=== PATIENT | female | born 2000 | race Caucasian/White ===

== ENCOUNTER 2023-01-07 17:17 | Emergency (ER) | payer OTHER, SELFPAY ==
[2023-01-07 17:22] VITALS: BP 108/68; PULSE 102; RESP 20; TEMP 37.1; O2SAT 98
--- NOTE | 2023-01-07 17:28 | ED.NAVMDI ---
HPI - Nausea/Vomiting/Diarrhea General Chief complaint: Nausea/Vomiting/Diarrhea Stated complaint: Congestion/Vomiting Source: patient and RN notes reviewed History of Present Illness HPI Narrative: 22-year-old female presents urgent care with complaints of sinus congestion, sinus pressure, headache, excessive mucus that she continues to choke on and causes her to vomit. Patient states she has been having these symptoms for last 8 days and is getting worse. Patient states today she had an episode of watery diarrhea. Denies any chest pain, shortness of breath, ear pain, or dysuria. Patient to be DayQuil last week whih resolved the sore throat. Some parts of this dictation were generated by voice recognition software and may contain typographical and/or grammatical inaccuracies. Related Data Home Medications Medication Instructions Recorded Confirmed omeprazole 40 mg capsule,delayed 40 mg PO DIRECTED 01/07/23 01/07/23 release ondansetron HCl 8 mg tablet 8 mg PO DIRECTED 01/07/23 01/07/23 Allergies Allergy/AdvReac Type Severity Reaction Status Date / Time No Known Allergies Allergy Verified 01/07/23 17:34 Review of Systems Review of Systems: CONSTITUTIONAL: Denies fever, chills, or sweats. EYES: Denies visual changes, redness, or discharge. ENT: Congestion CARDIOVASCULAR: Denies chest pain, palpitations, or edema. RESPIRATORY: Denies cough or dyspnea. GASTROINTESTINAL: Vomiting and diarrhea GENITOURINARY: Denies dysuria or hematuria. SKIN: Denies rash or itching. MUSCULOSKELETAL: Denies back pain, joint pain, or myalgia. NEUROLOGIC: Headache PMFSH Comments At the time of my signature, I reviewed and agree with the nursing past medical, surgical, social, and family history. There is no relevant family history pertinent to the patient complaint. Exam Narrative: GENERAL: This is a well-nourished, well-developed patient, in no apparent distress. HEAD: normocephalic, atraumatic. EYES: Sclera clear/white. Vision is grossly intact. EARS: External ears normal, auditory canals clear and without drainage, TMs normal without perforation. Hearing grossly intact. NOSE: Congestion THROAT: Mucous membranes moist, posterior pharynx clear. NECK: Neck supple, non-tender without lymphadenopathy, masses or thyromegaly. CARDIOVASCULAR: Regular rate and rhythm without murmurs, gallops, or rubs. RESPIRATORY: Clear to auscultation. Breath sounds equal bilaterally. No wheezes, rales, or rhonchi. GASTROINTESTINAL: Abdomen soft, non-tender, nondistended. Bowel sounds are active. No hepato-splenomegaly, or palpable masses. No guarding. SKIN: warm, intact with no suspicious lesions or rash, good texture and turgor. NEURO: awake, alert, and oriented to person, place and time. There were no obvious focal neurologic abnormalities. EXTREMITIES: No clubbing, cyanosis, or edema. No joint tenderness, effusion, or edema noted. BACK: Nontender without deformity or crepitance. No flank tenderness. Course Course Level of Care: Express Care Visit Vital Signs Vital signs: Vital Signs Temperature 98.7 F 01/07/23 17:22 Pulse Rate 102 H 01/07/23 17:22 Respiratory Rate 20 01/07/23 17:22 Blood Pressure 108/68 01/07/23 17:22 Pulse Oximetry 98 01/07/23 17:22 Oxygen Delivery Room Air 01/07/23 17:22 Temperature 98.7 F 01/07/23 17:22 Pulse Rate 102 H 01/07/23 17:22 Respiratory Rate 20 01/07/23 17:22 Blood Pressure 108/68 01/07/23 17:22 Pulse Oximetry 98 01/07/23 17:22 Oxygen Delivery Room Air 01/07/23 17:22 Reviewed MDM - Nausea/Vomiting/Diarrhea MDM Narrative Medical decision making narrative: Take the Zofran ODT at home as directed for nausea and get plenty of fluids. You may take Imodium for diarrhea. If you would like to eat food, you should follow the BRAT diet (bananas, rice, applesauce, and toast, or things of the like). If you develop any new or worsening symptoms, you should go to the em
== END 2023-01-07 18:08 | disposition home or self-care (01) ==
PROVIDERS: Emergency Provider Nurse Practitioner Family; PCP Nurse Practitioner Family
DX: J32.9 Chronic sinusitis, unspecified (principal)
CPT/HCPCS: 99213; G0463

== ENCOUNTER 2023-03-08 17:48 | Emergency (ER) | payer OTHER, SELFPAY ==
[2023-03-08 17:57] VITALS: BP 114/76; PULSE 85; RESP 14; TEMP 36.7; O2SAT 96
--- NOTE | 2023-03-08 18:00 | ECG_ITS ---
Measurements Intervals [place] Rate: 80 P: 58 NM: 175 QRS: 66 QRSD: 83 T: -47 QT: 344 QTc: 398 Interpretive Statements SINUS RHYTHM POSSIBLE LEFT ATRIAL ENLARGEMENT NONSPECIFIC T-WAVE ABNORMALITY- ANTEROLAT/INF LEADS BORDERLINE ECG NO PREVIOUS ECG AVAILABLE FOR COMPARISON Electronically Signed On 03-10-2023 15:02:31 CDT by Triston Richards D.O.
[2023-03-08 18:25] LABS: Basophils Absolute Auto 0.1 K/mm3 (0.0-0.1); Basophils Percent Auto 0.5 % (0.2-1.2); Eosinophils Absolute Auto 0.2 K/mm3 (0-0.3); Eosinophils Percent Auto 1.8 % (0-4.4); Hematocrit 44.2 % (37.0-47.0); Hemoglobin 14.9 g/dL (12.0-15.0); Immature Granulocyte Absolute 0.03 K/mm3 (0.00-0.031); Immature Granulocyte Percent A 0.3 % (0-0.5); Lymphocytes Percent Auto 41.5 % (18.3-44.2); Mean Corpuscular HGB Conc 33.7 g/dl (32-36); Mean Corpuscular Hemoglobin 30.3 pg (26-34); Mean Corpuscular Volume 89.8 fl (80-100); Mean Platelet Volume 11.2 fl (7.4-10.4); Monocytes Absolute Auto 0.7 K/mm3 (0.1-0.6); Monocytes Percent Auto 6.3 % (2.6-8.5); Neutrophils Absolute Auto 5.6 K/mm3 (1.3-6.7); Neutrophils Percent Auto 49.6 % (45.5-73.1); Platelet Count Result 226 k/mm3 (150-375); Red Blood Count 4.92 M/mm3 (4.2-5.4); Red Cell Distribution Width 13.5 % (11.5-14.5); White Blood Count 11.3 K/mm3 (4.5-10.0)
[2023-03-08 18:35] LABS: Alanine Aminotransferase 13 U/L (6-35); Albumin Level 4.5 g/dL (3.5-5.1); Alkaline Phosphatase 68 U/L (38-126); Anion Gap 6 mmol/L (8-16); Aspartate Amino Transferase 21 U/L (14-36); Bilirubin,Total 0.4 mg/dL (0.2-1.3); Blood Urea Nitrogen 7 mg/dL (7-17); Calcium 9.2 mg/dL (8.4-10.2); Carbon Dioxide 29 mmol/L (22-30); Chloride 104 mmol/L (98-107); Estimated CRCL calculation 96 ml/min; Estimated Glomerular Filt Rate > 60; Glucose 86 mg/dL (65-110); Potassium 3.7 mmol/L (3.4-5.0); Sodium 139 mmol/L (137-145)
[2023-03-08 21:21] VITALS: BP 118/78; PULSE 75; RESP 25; O2SAT 98
--- NOTE | 2023-03-08 21:34 | ED.SYNCOPE ---
HPI - Syncope General Chief Complaint: Syncope Stated Complaint: multiple syncopal episodes since wednesday Time Seen by Provider: 03/08/23 21:17 Source: patient and RN notes reviewed Mode of arrival: ambulatory Limitations: no limitations History of Present Illness HPI narrative: This is a 22 year old female who presents for evaluation of syncope episode. [place] had fainting episode. She reports she felt nausea and lightheaded when she was walking. She states at that she fell to the ground and she hit her head. She was sent to [facility], operated by [facility] that day for evaluation. She reports having labs and CT brain ordered. She was discharged after she was able to ambulate around the ER. She states today she developed nausea, warm and flushed and lightheaded. She reports she does not think she completely passed out. She denies having palpitations, chest pain or shortness of breath at that time. Her mother states patient does not eat much over the past several months. She has been dealing with GI issues in which she has nausea and decreased appetite. Patient states she only had 1 thing to eat today. She states she had upper endoscopy in November for her symptoms, and she has been prescribed omeprazole. Related Data Home Medications Medication Instructions Recorded Confirmed omeprazole 40 mg capsule,delayed 40 mg PO DIRECTED 01/07/23 01/07/23 release ondansetron HCl 8 mg tablet 8 mg PO DIRECTED 01/07/23 01/07/23 Allergies Allergy/AdvReac Type Severity Reaction Status Date / Time No Known Allergies Allergy Verified 03/08/23 21:15 Review of Systems Constitutional: Constitutional: Denies weakness Cardiovascular: Cardiovascular: Reports syncope, Denies rapid heart rate, Denies irregular heart rhythm, Denies leg edema and Denies dyspnea Respiratory: Respiratory: Denies chest congestion, Denies hemoptysis, Denies excessive phlegm production and Denies dyspnea Gastrointestinal: Gastrointestinal: Denies abdominal pain, Denies hematochezia, Denies diarrhea, Reports nausea and Denies vomiting Genitourinary: Genitourinary: Denies hematuria and Denies dysuria Musculoskeletal: Musculoskeletal: Denies joint swelling, Denies loss of height and Denies muscle weakness Neurologic: Denies syncope, Denies focal weakness and Denies weakness PMFSH Past Medical History Medical History (Updated 03/08/23 @ 22:39 by Jazmyn Garcia MD) GERD (gastroesophageal reflux disease) Surgical History Surgical History (Updated 03/08/23 @ 21:39 by Jazmyn Garcia MD) No pertinent past surgical history Social History Social History (Updated 03/08/23 @ 21:40 by Jazmyn Garcia MD) Smoking status: Never smoker Exam Narrative: GENERAL: Well-appearing, well-nourished, and in no acute distress. HEAD: Normocephalic, atraumatic EYES: PERRLA and EOMI, conjunctiva clear without discharge THROAT:Mucous membranes moist, Oropharynx normal without erythema, exudate, peritonsillar swelling or fluctuance NECK: Supple, without lymphadenopathy or mass RESPIRATORY: No respiratory distress, Airway patent, Respirations non-labored, Clear to auscultation without rales, rhonchi or wheeze HEART: Regular rate and rhythm. No murmur heard. Normal peripheral pulses. ABDOMEN: Soft, nontender, nondistended, normal active bowel sounds. No masses. No rebound or guarding, No organomegaly. EXTREMITIES: No edema, normal strength with full range of motion. SKIN: Warm, dry, normal color without rash NEURO: Alert and oriented x3. CN 2-12 grossly intact. No focal deficits. PSYCH: Normal mood and affect. Course Reevaluation(s) Reevaluation #1: Patient initially had nausea so she was given zofran 4 mg IV. Patient had no complaints now. She understands she has abnormal urinalysis and she will be started on antibiotics. she denies abdominal pain or abnormal vaginal discharge. I discussed her
[2023-03-08 21:44] LABS: Magnesium 2.2 mg/dL (1.6-2.3)
[2023-03-08] MEDS: SODIUM CHLORIDE 0.9% IV 1,000 ML 999 ML IV CONT (21:45)
[2023-03-08 21:59] LABS: Appearance Urine Cloudy (Clear); Bacteria Urine Rare /hpf; Bilirubin Urine Negative (Negative); Blood Urine Negative (Negative); Color Urine Yellow (Yellow); Glucose Urine UA Negative (Negative); Ketones Urine Negative (Negative); Leukocyte Esterase Ur 1+ LEU/UL (Negative); Nitrate Urine Negative (Negative); Non Pathogenic Casts 0-2; Protein Urine Negative (Negative); Specific Grav Ur 1.018 (1.001-1.035); Squamous Epithelial Cell Urine Moderate /hpf (Few); WBC Urine 21-50 /hpf; pH Urine 5.5 (5.0-9.0)
[2023-03-08 22:01] LABS: Add Urine Microscopic? YES
[2023-03-08] MEDS: ONDANSETRON INJ 4 MG/2 ML VIAL IV PUSH (22:11)
[2023-03-08 22:16] VITALS: BP 133/83; PULSE 60
[2023-03-08 22:18] VITALS: BP 141/87; PULSE 65
[2023-03-08 22:19] VITALS: BP 128/91; PULSE 68
[2023-03-08 22:48] VITALS: BP 106/58; PULSE 62; RESP 17; O2SAT 98
== END 2023-03-08 22:49 | disposition home or self-care (01) ==
PROVIDERS: Emergency Medicine; Emergency Provider General Practice; PCP Nurse Practitioner Family
DX: R55 Syncope and collapse (principal); N39.0 Urinary tract infection, site not specified; K21.9 Gastro-esophageal reflux disease without esophagitis; R94.31 Abnormal electrocardiogram [ECG] [EKG]
CPT/HCPCS: 36415; 80053; 81001; 81025; 83735; 85025; 87086; 93005; 96361; 96374; 99284; J2405; J7030

== ENCOUNTER 2024-05-20 12:15 | Emergency (ER) | payer OTHER, SELFPAY ==
[2024-05-20 12:27] VITALS: BP 124/71; PULSE 91; RESP 24; TEMP 37.2; O2SAT 99
--- NOTE | 2024-05-20 12:28 | ED.NAVMDI ---
HPI - Nausea/Vomiting/Diarrhea General Chief complaint: Upper Respiratory Infection Stated complaint: Vomiting/Shortness of Breath/Dizziness Time Seen by Provider: 05/20/24 12:29 Source: patient and RN notes reviewed Mode of arrival: ambulatory Limitations: no limitations History of Present Illness HPI Narrative: 23-year-old female presents concern for nausea and vomiting for 2 weeks. She reports she is vomiting 2 to 3 times a day and will subsequently have dizziness and shortness of breath after she vomits. She reports she is vomiting 2 to 3 times a day. She denies abdominal pain, diarrhea. She denies nasal congestion, rhinorrhea, sore throat, cough. She reports headache. She she reports she is drinking and eating normally. She reports when she vomits she vomits bile. She denies dysuria, frequency, urgency, back pain. She denies fever. Reports chills, sweats. MD elicited complaint: nausea and vomiting Related Data Allergies Allergy/AdvReac Type Severity Reaction Status Date / Time No Known Allergies Allergy Verified 04/18/24 15:53 Review of Systems Review of Systems: CONSTITUTIONAL: Denies malaise, chills, sweats, or fever. ENT: Denies rhinorrhea, congestion, sinus pain, otalgia or sore throat. CARDIOVASCULAR: Denies chest pain, palpitations, or edema. RESPIRATORY: Denies cough. Reports episodes of shortness of breath after vomiting GASTROINTESTINAL: Denies abdominal pain, diarrhea. Reports nausea and vomiting GENITOURINARY: Denies dysuria or hematuria. MUSCULOSKELETAL: Denies myalgia. NEUROLOGIC: Denies headache. Reports dizziness after vomiting All systems reviewed & are unremarkable except as noted in HPI and below PMFSH Past Medical History Medical History GERD (gastroesophageal reflux disease) Surgical History Surgical History No pertinent past surgical history Family History Family History (Updated 04/18/24 @ 15:54 by Marcia Stephenson CMA) Father Heart disease Other Breast cancer Social History Social History (Updated 04/18/24 @ 15:55 by Marcia Stephenson CMA) Smoking status: Never smoker Tobacco type: e-cigarettes/vaping Alcohol intake: current Substance use: current Substance use type: marijuana Do You Feel Safe in your Home?: Yes Lack of Transportation: No Lack of Food: Never True Current Housing: I Have Housing Concerned About Future Housing: No Difficulty Paying Gas/Electric Bills: No Difficulty Paying for Meds: No Currently Unemployed: No Education: High School Diploma/GED Difficulty w/ Childcare or Family Care: No Living arrangements: with roommate(s) Occupation/Education: occupation Gender identity (if verbalized by the patient): Female Sexual Orientation (if Verbalized by the Patient): Straight or Heterosexual Comments At time of signature, agree with nursing past medical, surgical, social and family history. There is no relevant family history pertinent to the presenting complaint Exam Narrative: GENERAL: Well-appearing, well-nourished, and in no acute distress. HEAD: Normocephalic, atraumatic. EYES: PERRLA, conjunctivae clear, and EOMI. ENT: Nares clear, turbinates pink, no rhinorrhea or epistaxis. Mucous membranes moist. Oropharynx without edema, erythema, or lesions. Tonsils not enlarged and without exudate. NECK: Supple. No lymphadenopathy CHEST: Speaks in full sentences. No respiratory distress. HEART: Regular rate and rhythm. ABDOMEN: Soft, obese, nondistended, nontender. No guarding, rebound tenderness, or rigidity. No pulsatile masses. Bowel sounds present in all four quadrants. SKIN: Warm, dry, no rash. NEURO: Alert and oriented x3. PSYCH: Normal mood and affect Course Course Emergency Course: Discussed exam unremarkable findings, unremarkable test results with patient. Discussed option of transferring bin
[2024-05-20 12:51] LABS: EDSTREPNEGPOS1 Presumptive Negative
[2024-05-20 13:03] LABS: EDUAAPPEAR Clear; EDUABILI Negative; EDUABLOOD 1+; EDUACOLOR1 Light/Pale; EDUAGLUCOSE Negative; EDUAKETONE Negative; EDUALEUKO Trace; EDUANITRATE Negative; EDUAPH 7.5; EDUAPROTEIN Negative; EDUASPGRAVITY 1.015; EDUAUROBILI 0.2
== END 2024-05-20 12:54 | disposition home or self-care (01) ==
PROVIDERS: Emergency Provider Nurse Practitioner
DX: R11.2 Nausea with vomiting, unspecified (principal); F12.90 Cannabis use, unspecified, uncomplicated; K21.9 Gastro-esophageal reflux disease without esophagitis
CPT/HCPCS: 81003; 87081; 87086; 87880; 99213; G0463